=== PATIENT | male | born 1990 ===

== ENCOUNTER 2017-01-22 16:37 | Emergency (ER) | payer SELFPAY ==
[~2017-01-22] VITALS: Ht 190.5 cm; Wt 79.1 kg
[2017-01-22 16:58] VITALS: BP 137/84; PULSE 61; RESP 16; O2SAT 100
== END 2017-01-22 16:45 | disposition left against medical advice (07) ==
LOC: SED 16:37
DX: Z53.21 Procedure and treatment not carried out due to patient leaving prior to being seen by health care provider (principal)